=== PATIENT | male | born 1990 | race Two or more races ===

== ENCOUNTER 2019-09-15 13:03 | Emergency (ER) | payer MEDICAID, SELFPAY ==
[2019-09-15 13:20] VITALS: BP 130/84; PULSE 86; RESP 21; TEMP 36.8; O2SAT 99; BMI 27.4
[2019-09-15 13:46] VITALS: BP 130/84; PULSE 86; RESP 21; TEMP 36.8; O2SAT 99
--- NOTE | 2019-09-15 13:48 | HMH.EDUTC ---
[facility] [place] Clinical Impression: Dental abscess Disposition: Home, Self-Care Condition on Discharge: Good Instructions: Tooth Abscess Additional Instructions: You have to follow up with a dentist as soon as possible. Follow up with your regular doctor. Take the antibiotics as prescribed. GO TO THE ER FOR ANY WORSENING SYMPTOMS OR CONCERNS, ESPECIALLY AND FEVER, CHILLS, OR WORSENING SWELLING. Prescriptions: Ibuprofen [Ibuprofen 800mg Tablet] 800 mg PO Q8HP PRN #30 tab PRN Reason: Moderate Pain Transmission Status: Received by [employer] [facility] Amoxicillin [Amoxicillin 500mg Tab] 500 mg PO TID 10 Days #30 tab Transmission Status: Received by [employer] [facility] Referrals: Jhonathan Mancera MD [Primary Care Provider] - Time of Disposition: 13:51 Medical Decision Making - Medical Records Medical records reviewed: No: I reviewed the patient's medical records. - Agusto Inquiry Pt receiving controlled substance: No Vital Signs: 09/15/19 13:20 09/15/19 13:46 Temperature 98.3 F 98.3 F Temperature Source Oral Pulse Rate 86 Pulse Rate [Right Brachial] 86 Respiratory Rate 21 21 Blood Pressure 130/84 Blood Pressure [Right Arm] 130/84 Blood Pressure Mean [Right Arm] 99 Blood Pressure Source [Right Arm] Automatic Cuff Blood Pressure Position [Right Arm] Sitting 02 Sat by Pulse Oximetry 99 Oxygen Delivery Method Room Air Orders (Tests/Meds): ED MEDICATIONS Discontinued Medications Generic Name Dose Route Start Last Admin Trade Name Freq PRN Reason Stop Dose Admin Ceftriaxone Sodium 1 gm 09/15/19 13:39 09/15/19 13:41 Rocephin 1gm Vial IM 09/15/19 13:40 1 gm ONCE ONE Administration Protocol Ketorolac Tromethamine 60 mg 09/15/19 13:39 09/15/19 13:41 Toradol 60mg/2ml Vial IM 09/15/19 13:40 60 mg ONCE ONE Administration Lidocaine HCl 0 ml 09/15/19 13:39 09/15/19 13:41 Lidocaine 1% 10ml Mdv IM 09/15/19 13:40 2.1 ml ONCE ONE Administration [facility] [place] - General Stated complaint: tooth pain Time Seen by Provider: 09/15/19 13:30 Mode of Arrival: Ambulatory Source of Information: Patient Limitations: No Limitations Description of Symptoms (Recalled from Triage Doc. by RN): PATIENT C/O TOOTHACHE TO LEFT SIDE X 3 DAYS. STATES THE PAIN HAS KEPT HIM FROM SLEEPING FOR THE LAST 2 NIGHTS. DENIES FEVER. HE HAS BEEN TAKING TYLENOL AND IBUPROFEN FOR THE PAIN, BUT STATES IT DOES NOT HELP HEENT Symptoms (Recalled from RN notes): Yes Resp Symptoms (Recalled from RN notes): No Skin Symptoms (Recalled from RN notes): No MS Symptoms (Recalled from RN notes): No Functional Status (Recalled from RN notes): WNL - History of Present Illness Provider Complaint: He c/o left lower jaw dental pain and swelling. His swelling and worsening pain began about 5 days ago. He denies any fever or chills. - Related Data Previous Rx's Medication Instructions Recorded Amoxicillin [Amoxicillin 500mg Tab] 500 mg PO TID 10 Days #30 tab 09/15/19 Ibuprofen [Ibuprofen 800mg 800 mg PO Q8HP PRN #30 tab 09/15/19 Tablet] Allergies Allergy/AdvReac Type Severity Reaction Status Date / Time No Known Allergies Allergy Verified 09/15/19 13:23 - Worker's Comp Is this a Worker's Comp case?: No [facility] History - Hepatitis A Screen Drug use history?: No High risk sexual behaviors?: No History of sexually transmitted infection?: No Currently employed?: No Childcare worker?: No Do you have indoor plumbing?: Yes Do you have electricity?: Yes Attestation statement:: This patient has been screened for Hepatitis A risk factors. I have reviewed the patient's past medical history: Yes - Social History Alcohol Intake: never Occupational Status: other ROS Obtained: Yes All systems reviewed & no additional complaints - Constitutional Constitutional: Denies chills, Denies fever(s) - Eyes Eyes: Denies blurry vision, Denies change in vision, Denies
== END 2019-09-15 13:56 | disposition home or self-care (01) ==
PROVIDERS: Emergency Provider Nurse Practitioner Family; PCP Emergency Medicine
DX: K04.7 Periapical abscess without sinus (principal)
CPT/HCPCS: 96372; 99201